=== PATIENT | female | born 1945 | race Caucasian/White ===

== ENCOUNTER 2018-05-25 10:29 | Emergency (ER) | payer OTHER ==
[~2018-05-25] VITALS: Ht 157.5 cm; Wt 77.3 kg
[~2018-05-25 10:29] MED LIST: ASPI81TA42 PO; HYDR25TA PO; LOSA25TA16 PO
[2018-05-25 12:20] VITALS: BP 141/87
[2018-05-25] MEDS ORDERED: KETOROLAC TROMETHAMINE 30 MG/ML VIAL IM ONE (12:45)
== END 2018-05-25 13:11 | disposition home or self-care (01) ==
LOC: EMS 10:31
DX: M54.9 Dorsalgia, unspecified (principal); I10 Essential (primary) hypertension; Z98.890 Other specified postprocedural states; Z88.0 Allergy status to penicillin; Z79.82 Long term (current) use of aspirin; Z79.899 Other long term (current) drug therapy
CPT/HCPCS: 96372; 99283; J1885

== ENCOUNTER 2019-10-09 11:53 | Emergency (ER) | payer OTHER ==
[~2019-10-09] VITALS: Ht 167.6 cm; Wt 83.8 kg
[~2019-10-09 11:53] MED LIST changes: +ASPI81TA40 PO; -ASPI81TA42 PO; +HYDR-1475 PO; -HYDR25TA PO; -LOSA25TA16 PO; +LOSA25TA71 PO
[2019-10-09] MEDS ORDERED: OXYMETAZOLINE HCL 0.05% 15 ML NASAL SPRAY NASAL ONE (12:45)
[2019-10-09 13:01] LABS: BASOPHILS % (AUTO) 0.4 % (0.0-2.0); EOSINOPHILS % (AUTO) 2.5 % (1.0-6.0); HEMATOCRIT 43.3 % (36-46); HEMOGLOBIN 13.8 g/dL (12.0-16.0); LYMPHOCYTES # (AUTO) 1.5 K/uL (1.0-4.8); MEAN CORPUSCULAR HEMOGLOBIN 24.9 pg (26.0-34.0); MEAN CORPUSCULAR HGB CONC 31.9 G/dL (31.0-37.0); MEAN CORPUSCULAR VOLUME 78 fL (80-100); MONOCYTES # (AUTO) 1.1 K/uL (0.1-1.0); MONOCYTES % (AUTO) 10.1 % (2.0-9.0); NEUTROPHILS # (AUTO) 7.6 K/uL (1.8-7.7); PLATELET COUNT (AUTO) 335 K/uL (150-450); RED BLOOD CELL COUNT(AUTO) 5.55 MIL/uL (4.00-5.20); RED CELL DISTRIBUTION WIDTH 14.9 % (11.5-14.5)
[2019-10-09 13:10] LABS: CALCIUM, TOTAL 9.6 mg/dL (8.8-10.5); CREATININE 0.95 mg/dL (0.60-1.30); POTASSIUM 3.9 mmol/L (3.5-5.1)
[2019-10-09 13:24] LABS: ALBUMIN 3.4 g/dL (3.4-5.0); BILIRUBIN,TOTAL 0.3 mg/dL (0.1-1.0); TOTAL PROTEIN, SERUM 8.1 g/dL (6.4-8.2)
[2019-10-09 13:40] VITALS: BP 120/77
== END 2019-10-09 14:11 | disposition home or self-care (01) ==
LOC: EMS 11:57
DX: R04.0 Epistaxis (principal); I10 Essential (primary) hypertension; Z98.890 Other specified postprocedural states; Z79.899 Other long term (current) drug therapy; Z79.82 Long term (current) use of aspirin; Z88.0 Allergy status to penicillin

== ENCOUNTER 2023-06-05 18:04 | Inpatient (IN) | payer OTHER ==
[~2023-06-05] VITALS: Ht 157.5 cm; Wt 81.1 kg
[~2023-06-05 18:04] MED LIST changes: +ASPI-1444 PO; -ASPI81TA40 PO; +ATOR20TA65 PO; +BACL10TA PO; +DAPA10TA PO; +FURO20TA4 PO; -HYDR-1475 PO; +ICOS1CAP PO; +LEVO750T68 PO; +LOSA-381 PO; -LOSA25TA71 PO; +METO50 PO; +PANT40TA54 PO; +POTA-203 PO
[2023-06-05] MEDS ORDERED: FUROSEMIDE 40 MG/4 ML VIAL IVP ONE (18:15)
[2023-06-05] MEDS ORDERED: ASPIRIN 325 MG TABLET PO ONE (18:15)
[2023-06-05 19:05] LABS: BASOPHILS % (AUTO) 0.3 % (0.0-2.0); EOSINOPHILS % (AUTO) 3.7 % (1.0-6.0); HEMATOCRIT 40.2 % (36-46); HEMOGLOBIN 12.4 g/dL (12.0-16.0); LYMPHOCYTES # (AUTO) 2.3 K/uL (1.0-4.8); LYMPHOCYTES % (AUTO) 24.7 % (22.0-44.0); MEAN CORPUSCULAR HEMOGLOBIN 23.6 pg (26.0-34.0); MEAN CORPUSCULAR HGB CONC 30.8 G/dL (31.0-37.0); MEAN CORPUSCULAR VOLUME 77 fL (80-100); MONOCYTES # (AUTO) 1.4 K/uL (0.1-1.0); MONOCYTES % (AUTO) 14.7 % (2.0-9.0); NEUTROPHILS # (AUTO) 5.2 K/uL (1.8-7.7); NEUTROPHILS % (AUTO) 56.6 % (40.0-70.0); PLATELET COUNT (AUTO) 284 K/uL (150-450); RED BLOOD CELL COUNT(AUTO) 5.24 MIL/uL (4.00-5.20); RED CELL DISTRIBUTION WIDTH 18.4 % (11.5-14.5); WHITE BLOOD COUNT (AUTO) 9.2 K/uL (4.5-11.0)
[2023-06-05 19:09] LABS: CREATININE 1.03 mg/dL (0.60-1.30)
[2023-06-05 19:10] LABS: CALCIUM, TOTAL 9.3 mg/dL (8.8-10.5)
[2023-06-05 19:15] LABS: BILIRUBIN,TOTAL 0.6 mg/dL (0.1-1.0); TOTAL PROTEIN, SERUM 7.1 g/dL (6.4-8.2)
[2023-06-05 19:17] LABS: TROPONIN I-HIGH SENSITIVITY 30 ng/L (<51)
[2023-06-05 19:19] LABS: PLATELET MORPHOLOGY COMMENT LARGE PLTS PRESENT; RBC MORPHOLOGY COMMENT ABNORMAL RBC MORPH
[2023-06-05 19:22] LABS: LACTIC ACID 1.6 mmol/L (0.4-2.0)
[2023-06-05 19:27] LABS: COVID AG,FIA SOURCE NASAL SWAB
[2023-06-05 19:29] LABS: APPEARANCE,URINE CLEAR (CLEAR); BILIRUBIN,URINE NEGATIVE (NEGATIVE); COLOR,URINE COLORLESS (YELLOW); GLUCOSE, URINE (UA) 300-500 mg/dL (NEGATIVE); KETONES,URINE NEGATIVE (NEGATIVE); LEUKOCYTE ESTERASE ,URINE NEGATIVE (NEGATIVE); NITRATE,URINE NEGATIVE (NEGATIVE); OCCULT BLOOD,URINE NEGATIVE (NEGATIVE); PROTEIN,URINE NEGATIVE (NEGATIVE); SPECIFIC GRAVITIY, URINE 1.005 (1.003-1.030); UROBILINOGEN,URINE <=1.0 mg/dL (<=1.0)
[2023-06-05 19:33] LABS: BACTERIA,URINE None Seen /HPF (None Seen); RBC,URINE 0-2 /HPF (0-2); SQUAMOUS EPITHELIAL CELL,UR Few /LPF (None Seen); WBC,URINE 0-2 /HPF (0-5)
[2023-06-05 19:45] LABS: SARS-COV2 (COVID) ANTIGEN,FIA Negative (Negative)
[2023-06-05] MEDS ORDERED: OXYGEN THERAPY IH SCH (20:00)
[2023-06-05] MEDS ORDERED: ALBUTEROL SULFATE 2.5 MG/0.5 ML NEB SOLUTION NEB PRN (21:00)
[2023-06-05] MEDS ORDERED: [UNRECOGNIZED DRUG - OTHER] PO SCH (21:00)
[2023-06-05] MEDS ORDERED: IPRATROPIUM BROMIDE 0.5 MG/2.5 ML NEB SOLUTION NEB PRN (21:00)
[2023-06-05] MEDS ORDERED: ONDANSETRON HCL 4 MG/2 ML VIAL IVP PRN (21:00)
[2023-06-05] MEDS ORDERED: ACETAMINOPHEN 325 MG TABLET PO PRN (21:00)
[2023-06-05] MEDS: METOPROLOL TARTRATE 50 MG TABLET PO SCH (21:39)
[2023-06-05] MEDS: ATORVASTATIN CALCIUM 20 MG TABLET PO SCH (21:39)
[2023-06-05] MEDS: DOCUSATE SODIUM 100 MG CAPSULE PO SCH (21:39)
[2023-06-05] MEDS ORDERED: IOHEXOL 350 MG/ML 100 ML VIAL ONE (21:55)
[2023-06-05] MEDS ORDERED: SODIUM CHLORIDE 0.9% 100 ML ONE (21:55)
[2023-06-05] MEDS ORDERED: VANCOMYCIN HCL 1.25 GM in DEXTROSE 5%-WATER 250 ML IV ONE (22:30)
[2023-06-05 22:54] VITALS: BP 142/89; PULSE 84; RESP 18; TEMP 97.9
[2023-06-05 23:51] LABS: TROPONIN I-HIGH SENSITIVITY 27 ng/L (<51)
[2023-06-06 00:51] VITALS: BP 137/85; PULSE 70; RESP 18; TEMP 97.6
[2023-06-06] MEDS: HEPARIN SODIUM,PORCINE 5,000 UNITS/ML VIAL SQ SCH ×3 (00:52→16:57)
[2023-06-06 05:43] VITALS: BP 138/88; PULSE 73; RESP 18; TEMP 98
[2023-06-06 07:04] LABS: ANION GAP 8 mmol/L (8-16); CALCIUM, TOTAL 9.2 mg/dL (8.8-10.5); CARBON DIOXIDE 29 mmol/L (22-29); CHLORIDE 103 mmol/L (98-107); CREATININE 0.88 mg/dL (0.60-1.30); GLOMERULAR FILTR. RATE CALC > 60 mL/min (>60); GLUCOSE,RANDOM 84 mg/dL (70-110); POTASSIUM 3.5 mmol/L (3.5-5.1); SODIUM SERUM 140 mmol/L (136-145); UREA NITROGEN, BLOOD 18 mg/dL (7-18)
[2023-06-06 07:06] LABS: BASOPHILS % (AUTO) 0.3 % (0.0-2.0); EOSINOPHILS % (AUTO) 3.9 % (1.0-6.0); HEMATOCRIT 40.8 % (36-46); HEMOGLOBIN 12.6 g/dL (12.0-16.0); LYMPHOCYTES # (AUTO) 1.9 K/uL (1.0-4.8); MEAN CORPUSCULAR HEMOGLOBIN 23.5 pg (26.0-34.0); MEAN CORPUSCULAR HGB CONC 30.9 G/dL (31.0-37.0); MEAN CORPUSCULAR VOLUME 76 fL (80-100); MONOCYTES # (AUTO) 1.1 K/uL (0.1-1.0); MONOCYTES % (AUTO) 13.5 % (2.0-9.0); NEUTROPHILS # (AUTO) 5.1 K/uL (1.8-7.7); NEUTROPHILS % (AUTO) 60.3 % (40.0-70.0); PLATELET COUNT (AUTO) 259 K/uL (150-450); RED BLOOD CELL COUNT(AUTO) 5.36 MIL/uL (4.00-5.20); RED CELL DISTRIBUTION WIDTH 17.9 % (11.5-14.5); WHITE BLOOD COUNT (AUTO) 8.4 K/uL (4.5-11.0)
[2023-06-06 07:19] LABS: TROPONIN I-HIGH SENSITIVITY 36 ng/L (<51)
[2023-06-06 07:35] VITALS: BP 134/86; PULSE 76; RESP 20; TEMP 97.8
[2023-06-06] MEDS ORDERED: VANCOMYCIN HCL 500 MG in DEXTROSE 5%-WATER 100 ML IV SCH (08:00)
[2023-06-06] MEDS ORDERED: DEXTROSE 50%-WATER 25 GM/50 ML SYRINGE IVP PRN (08:30)
[2023-06-06] MEDS ORDERED: INSULIN LISPRO 100 UNITS/ML SQ PRN (08:30)
[2023-06-06 08:50] LABS: RBC MORPHOLOGY COMMENT ABNORMAL RBC MORPH
[2023-06-06] MEDS: DOCUSATE SODIUM 100 MG CAPSULE PO SCH ×3 (09:30→20:56)
[2023-06-06] MEDS: BACLOFEN 10 MG TABLET PO SCH (10:00)
[2023-06-06] MEDS: ASPIRIN 81 MG DR TABLET PO SCH (10:28)
[2023-06-06] MEDS: PANTOPRAZOLE SODIUM 40 MG DR TABLET PO SCH (10:28)
[2023-06-06] MEDS: LOSARTAN POTASSIUM 25 MG TABLET PO SCH (10:28)
[2023-06-06] MEDS: METOPROLOL TARTRATE 50 MG TABLET PO SCH ×2 (10:28→20:55)
[2023-06-06] MEDS: FUROSEMIDE 20 MG/2 ML VIAL IVP SCH ×2 (10:29→20:56)
[2023-06-06] MEDS: VANCOMYCIN HCL 750 MG in DEXTROSE 5%-WATER 250 ML IV SCH ×2 (10:30→20:56)
[2023-06-06 11:36] VITALS: BP 137/87; PULSE 81; RESP 22; TEMP 96.4
[2023-06-06 15:06] VITALS: BP 132/82; PULSE 76; RESP 19; TEMP 97.8
[2023-06-06 19:19] VITALS: BP 119/60; PULSE 86; RESP 18; TEMP 98
[2023-06-06] MEDS: APIXABAN 5 MG TABLET PO SCH (20:55)
[2023-06-06] MEDS: ATORVASTATIN CALCIUM 20 MG TABLET PO SCH (20:55)
[2023-06-06] MEDS ORDERED: INSULIN GLARGINE,HUM.REC.ANLOG 100 UNITS/ML SQ SCH (21:00)
[2023-06-06 22:01] LABS: GLUCOMETER DEV NAME(LOC) 5N.1C; GLUCOSE,POINT OF CARE 91 MG/DL (70-110)
[2023-06-06 22:06] LABS: GLUCOMETER DEV NAME(LOC) 5S.1B; GLUCOSE,POINT OF CARE 114 MG/DL (70-110)
[2023-06-07 00:09] VITALS: BP 135/79; PULSE 83; RESP 19; TEMP 98.6
[2023-06-07 03:15] VITALS: BP 126/78; PULSE 77; RESP 18; TEMP 98.4
[2023-06-07 06:32] LABS: ANION GAP 3 mmol/L (8-16); CALCIUM, TOTAL 8.9 mg/dL (8.8-10.5); CARBON DIOXIDE 31 mmol/L (22-29); CHLORIDE 103 mmol/L (98-107); GLOMERULAR FILTR. RATE CALC > 60 mL/min (>60); GLUCOSE,RANDOM 90 mg/dL (70-110); POTASSIUM 3.5 mmol/L (3.5-5.1); SODIUM SERUM 137 mmol/L (136-145); UREA NITROGEN, BLOOD 19 mg/dL (7-18)
[2023-06-07 07:29] VITALS: BP 115/71; PULSE 78; RESP 18; TEMP 98
[2023-06-07] MEDS: DOCUSATE SODIUM 100 MG CAPSULE PO SCH (09:00)
[2023-06-07] MEDS: VANCOMYCIN HCL 750 MG in DEXTROSE 5%-WATER 250 ML IV SCH (09:18)
[2023-06-07] MEDS: LOSARTAN POTASSIUM 25 MG TABLET PO SCH (09:19)
[2023-06-07] MEDS: FUROSEMIDE 20 MG/2 ML VIAL IVP SCH (09:19)
[2023-06-07] MEDS: BACLOFEN 10 MG TABLET PO SCH (09:20)
[2023-06-07] MEDS: APIXABAN 5 MG TABLET PO SCH (09:20)
[2023-06-07] MEDS: METOPROLOL TARTRATE 50 MG TABLET PO SCH (09:20)
[2023-06-07] MEDS: PANTOPRAZOLE SODIUM 40 MG DR TABLET PO SCH (09:20)
[2023-06-07] MEDS: ASPIRIN 81 MG DR TABLET PO SCH (09:24)
[2023-06-07] MEDS ORDERED: MIRT-92 PO (11:11)
[2023-06-07] MEDS ORDERED: ESCI20TA37 PO (11:11)
[2023-06-07] MEDS ORDERED: BUSP10TA3 PO (11:11)
[2023-06-07 11:20] VITALS: BP 115/69; PULSE 78; RESP 18; TEMP 97.9
[2023-06-07 11:56] LABS: GLUCOMETER DEV NAME(LOC) 5S.1B; GLUCOSE,POINT OF CARE 100 MG/DL (70-110)
[2023-06-07] MEDS ORDERED: DOXY-354 PO (17:03)
[2023-06-07] MEDS ORDERED: APIX5TAB PO (17:03)
[2023-06-07] MEDS ORDERED: DOXYCYCLINE HYCLATE 100 MG TABLET PO ONE (17:15)
== END 2023-06-07 19:40 | disposition home or self-care (01) | DRG 602 ==
LOC: EDUNIT# 18:04 → EMS 18:12 → 5S 21:40
PROVIDERS: ADMIT Internal Medicine; ATTEND Internal Medicine
DX: L03.116 Cellulitis of left lower limb (principal); I50.43 Acute on chronic combined systolic (congestive) and diastolic (congestive) heart failure; J18.9 Pneumonia, unspecified organism; J96.01 Acute respiratory failure with hypoxia; I11.0 Hypertensive heart disease with heart failure; Z20.822 Contact with and (suspected) exposure to COVID-19; R91.8 Other nonspecific abnormal finding of lung field; E66.01 Morbid (severe) obesity due to excess calories; E11.9 Type 2 diabetes mellitus without complications; Z68.32 Body mass index [BMI] 32.0-32.9, adult; Z88.0 Allergy status to penicillin; Z88.1 Allergy status to other antibiotic agents; Z79.899 Other long term (current) drug therapy; Z79.82 Long term (current) use of aspirin
CPT/HCPCS: 51702; 71045; 71275; 73503; 80048; 80053; 81001; 82962; 83605; 83690; 83735; 83880; 84484; 85025; 85379; 87040; 93005; 93971; 99291; G0378; J1644; J1815; J1940; J3370; J7050; J7060; Q9967; 36415-L1; 36415-TC

== ENCOUNTER 2023-12-30 09:07 | Inpatient (IN) | payer OTHER ==
[~2023-12-30] VITALS: Ht 160 cm; Wt 86.4 kg
[~2023-12-30 09:07] MED LIST changes: +APIX5TAB PO; +BUSP10TA3 PO; +DOXY-354 PO; +ESCI20TA37 PO; +MIRT-92 PO
[2023-12-30 09:15] VITALS: PULSE 74; RESP 16; RESP 20; O2SAT 93
[2023-12-30] MEDS ORDERED: POTA10CA95 PO (09:24)
[2023-12-30] MEDS ORDERED: LOSA-382 PO (09:24)
[2023-12-30] MEDS ORDERED: BUME1TAB34 PO (09:24)
[2023-12-30] MEDS ORDERED: KETO15CR2 TP (09:24)
[2023-12-30] MEDS: NITROGLYCERIN 2% (1 GM=INCH) OINTMENT PACKET TP ONE (09:27)
[2023-12-30 09:41] LABS: BASOPHILS % (AUTO) 0.2 % (0.0-2.0); EOSINOPHILS % (AUTO) 3.3 % (1.0-6.0); HEMATOCRIT 42.8 % (36-46); HEMOGLOBIN 13.7 g/dL (12.0-16.0); LYMPHOCYTES # (AUTO) 1.8 K/uL (1.0-4.8); LYMPHOCYTES % (AUTO) 21.1 % (22.0-44.0); MEAN CORPUSCULAR HEMOGLOBIN 28.2 pg (26.0-34.0); MEAN CORPUSCULAR VOLUME 88 fL (80-100); MONOCYTES # (AUTO) 0.5 K/uL (0.1-1.0); MONOCYTES % (AUTO) 6.4 % (2.0-9.0); NEUTROPHILS # (AUTO) 5.9 K/uL (1.8-7.7); PLATELET COUNT (AUTO) 205 K/uL (150-450); RED BLOOD CELL COUNT(AUTO) 4.86 MIL/uL (4.00-5.20); RED CELL DISTRIBUTION WIDTH 14.9 % (11.5-14.5); WHITE BLOOD COUNT (AUTO) 8.6 K/uL (4.5-11.0)
[2023-12-30 09:51] LABS: CALCIUM, TOTAL 9.2 mg/dL (8.8-10.5); CREATININE 1.13 mg/dL (0.60-1.30); POTASSIUM 4.2 mmol/L (3.5-5.1)
[2023-12-30 09:57] LABS: BILIRUBIN,TOTAL 0.3 mg/dL (0.1-1.0); PROTHROMBIN TIME 10.8 SEC (9.4-11.6); TOTAL PROTEIN, SERUM 7.5 g/dL (6.4-8.2)
[2023-12-30 10:01] LABS: TROPONIN I-HIGH SENSITIVITY 16 ng/L (<51)
[2023-12-30] MEDS: BUMETANIDE 0.25 MG/ML 4 ML VIAL IVP ONE (10:20)
[2023-12-30 11:43] LABS: APPEARANCE,URINE CLEAR (CLEAR); BILIRUBIN,URINE NEGATIVE (NEGATIVE); COLOR,URINE COLORLESS (YELLOW); GLUCOSE, URINE (UA) >=1000 mg/dL (NEGATIVE); KETONES,URINE NEGATIVE (NEGATIVE); LEUKOCYTE ESTERASE ,URINE SMALL (NEGATIVE); NITRATE,URINE NEGATIVE (NEGATIVE); OCCULT BLOOD,URINE NEGATIVE (NEGATIVE); PH,URINE 5.5 (5.0-8.0); PROTEIN,URINE NEGATIVE (NEGATIVE); SPECIFIC GRAVITIY, URINE 1.006 (1.003-1.030); UROBILINOGEN,URINE <=1.0 mg/dL (<=1.0)
[2023-12-30 12:30] LABS: COVID AG,FIA SOURCE NASAL SWAB
[2023-12-30 12:54] LABS: SARS-COV2 (COVID) ANTIGEN,FIA Negative (Negative)
[2023-12-30 13:39] LABS: RBC,URINE None Seen /HPF (0-2)
[2023-12-30 13:40] LABS: BACTERIA,URINE Few /HPF (None Seen)
[2023-12-30 16:00] VITALS: BP 130/78; PULSE 63; RESP 14; TEMP 98.1
[2023-12-30] MEDS ORDERED: ONDANSETRON HCL 4 MG/2 ML VIAL IVP PRN (18:15)
[2023-12-30] MEDS ORDERED: ZOLPIDEM TARTRATE 5 MG TABLET PO PRN (18:15)
[2023-12-30] MEDS ORDERED: BISACODYL 10 MG RECTAL RECTAL SUPPOSITORY PR PRN (18:15)
[2023-12-30] MEDS ORDERED: ACETAMINOPHEN 325 MG TABLET PO PRN (18:15)
[2023-12-30] MEDS ORDERED: MORPHINE SULFATE 2 MG/ML SYRINGE IVP PRN (18:15)
[2023-12-30] MEDS ORDERED: IPRATROPIUM BROMIDE 0.5 MG/2.5 ML NEB SOLUTION NEB PRN (18:15)
[2023-12-30] MEDS ORDERED: ALBUTEROL SULFATE 2.5 MG/0.5 ML NEB SOLUTION NEB PRN (18:15)
[2023-12-30] MEDS ORDERED: HYDROCODONE/ACETAMINOPHEN 5-325 MG TABLET PO PRN (18:15)
[2023-12-30] MEDS ORDERED: MAGNESIUM HYDROXIDE SUSPENSION 30 ML UDCUP PO PRN (18:15)
[2023-12-30 20:00] VITALS: BP 111/71; PULSE 69; RESP 17; TEMP 98
[2023-12-30] MEDS: APIXABAN 5 MG TABLET PO SCH (20:49)
[2023-12-30] MEDS: ESCITALOPRAM OXALATE 20 MG TABLET PO SCH (20:49)
[2023-12-30] MEDS: ATORVASTATIN CALCIUM 20 MG TABLET PO SCH (20:49)
[2023-12-30] MEDS: MIRTAZAPINE 15 MG TABLET PO SCH (20:49)
[2023-12-30] MEDS: POTASSIUM CHLORIDE 10 MEQ ER TABLET PO SCH (20:49)
[2023-12-30] MEDS: METOPROLOL TARTRATE 50 MG TABLET PO SCH (20:49)
[2023-12-30] MEDS ORDERED: [UNRECOGNIZED DRUG - OTHER] PO SCH (21:00)
[2023-12-31] VITALS (7 sets, daily range): BP systolic 106–129; BP diastolic 57–78; PULSE 53–98; RESP 15–20; TEMP 97.8–98.1; O2SAT 95
[2023-12-31 05:55] LABS: BASOPHILS % (AUTO) 0.2 % (0.0-2.0); HEMATOCRIT 42.6 % (36-46); HEMOGLOBIN 13.8 g/dL (12.0-16.0); LYMPHOCYTES # (AUTO) 2.4 K/uL (1.0-4.8); LYMPHOCYTES % (AUTO) 25.5 % (22.0-44.0); MEAN CORPUSCULAR HEMOGLOBIN 28.1 pg (26.0-34.0); MEAN CORPUSCULAR HGB CONC 32.5 G/dL (31.0-37.0); MEAN CORPUSCULAR VOLUME 87 fL (80-100); MONOCYTES # (AUTO) 1.1 K/uL (0.1-1.0); NEUTROPHILS # (AUTO) 5.5 K/uL (1.8-7.7); NEUTROPHILS % (AUTO) 58.3 % (40.0-70.0); PLATELET COUNT (AUTO) 209 K/uL (150-450); RED BLOOD CELL COUNT(AUTO) 4.92 MIL/uL (4.00-5.20); RED CELL DISTRIBUTION WIDTH 15.1 % (11.5-14.5); WHITE BLOOD COUNT (AUTO) 9.4 K/uL (4.5-11.0)
[2023-12-31 06:05] LABS: ALBUMIN 2.9 g/dL (3.4-5.0); BILIRUBIN,TOTAL 0.3 mg/dL (0.1-1.0); CALCIUM, TOTAL 9.3 mg/dL (8.8-10.5); CREATININE 0.91 mg/dL (0.60-1.30); POTASSIUM 4.3 mmol/L (3.5-5.1); TOTAL PROTEIN, SERUM 7.2 g/dL (6.4-8.2)
[2023-12-31] MEDS: PANTOPRAZOLE SODIUM 40 MG DR TABLET PO SCH (08:45)
[2023-12-31] MEDS: LOSARTAN POTASSIUM 50 MG TABLET PO SCH (08:45)
[2023-12-31] MEDS: DAPAGLIFLOZIN PROPANEDIOL 5 MG TABLET PO SCH (08:46)
[2023-12-31] MEDS ORDERED: PANTOPRAZOLE SODIUM 40 MG DR TABLET PO SCH (09:00)
[2023-12-31] MEDS ORDERED: BUME1TAB34 PO (13:33)
[2023-12-31] MEDS ORDERED: FURO40TA5 PO (17:03)
[2024-01-01] MEDS ORDERED: BUMETANIDE 0.25 MG/ML 4 ML VIAL IVP SCH (09:00)
== END 2023-12-31 16:00 | disposition home health service (06) | DRG 291 ==
LOC: EMS 09:07 → ICU 14:33 → 5S 12-31 05:40
PROVIDERS: ADMIT Hospitalist; ATTEND Hospitalist
PROC: 5A09357 Assistance with Respiratory Ventilation, Less than 24 Consecutive Hours, Continuous Positive Airway Pressure (ICD-10-PCS; principal; 2023-12-30)
DX: I11.0 Hypertensive heart disease with heart failure (principal); I50.23 Acute on chronic systolic (congestive) heart failure; J96.90 Respiratory failure, unspecified, unspecified whether with hypoxia or hypercapnia; Z20.822 Contact with and (suspected) exposure to COVID-19; Z88.0 Allergy status to penicillin; Z88.8 Allergy status to other drugs, medicaments and biological substances
CPT/HCPCS: 71045; 80053; 81001; 83880; 84484; 85025; 85610; 85730; 87081; 93005; 94660; 97116; 97163; 97165; 97535; 99285; J3490; Q9967; 36415-L1; 36415-TC

== ENCOUNTER 2024-06-14 04:07 | Inpatient (IN) | payer MEDICARE, OTHER ==
[~2024-06-14] VITALS: Ht 162.6 cm; Wt 98.2 kg
[2024-06-14] VITALS (9 sets, daily range): BP systolic 91–112; BP diastolic 64–82; PULSE 93–118; RESP 18–36; TEMP 97.4–98.4; O2SAT 96–100
[~2024-06-14 04:07] MED LIST changes: -ASPI-1444 PO; -BACL10TA PO; +BUME1TAB50 PO; -BUSP10TA3 PO; -DOXY-354 PO; -FURO20TA4 PO; +FURO40TA5 PO; +KETO15CR2 TP; -LEVO750T68 PO; -LOSA-381 PO; +LOSA-382 PO; -POTA-203 PO; +POTA10CA95 PO
[2024-06-14 04:24] LABS: ABG BASE EXCESS -3.3 mmol/L (-2.0-3.0); ABG CARBOXYHEMOGLOBIN 0.4 % (0.5-1.5); ABG HCO3 20.9 mmol/L (21.0-28.0); ABG METHEMOGLOBIN 0.8 % (0.0-1.5); ABG OXYGEN SATURATION 99.8 % (94.0-98.0); ABG OXYHEMOGLOBIN 98.6 % (94.0-98.0); ABG TOTAL HEMOGLOBIN 14.7 G/dL (12.0-16.0); PO2, ARTERIAL BG 267.4 mmHg (83.0-108.0); SOURCE, BLOOD GAS ARTERIAL; TEMPERATURE, FAHRENHEIT, BG 98.6 FAHREN (96.0-98.6)
[2024-06-14 04:25] LABS: ABG PCO2 62 mmHg (32.0-45.0); ABG PH 7.214 (7.350-7.450); SITE, BLOOD GAS RT RADIAL
[2024-06-14] MEDS: FUROSEMIDE 40 MG/4 ML VIAL IVP ONE (04:25)
[2024-06-14 04:26] LABS: ALLEN TEST, BLOOD GAS Positive; INSPIRATORY TIME, BG 0.9 SEC; O2 DEVICE,BLOOD GAS BIPAP (ROOM AIR); SPONTANEOUS VT, BG 447 ml
[2024-06-14 04:43] LABS: BASOPHILS % (AUTO) 0.2 % (0.0-2.0); EOSINOPHILS % (AUTO) 3.3 % (1.0-6.0); HEMATOCRIT 44.3 % (36-46); LYMPHOCYTES # (AUTO) 4.5 K/uL (1.0-4.8); MEAN CORPUSCULAR HEMOGLOBIN 28.1 pg (26.0-34.0); MEAN CORPUSCULAR HGB CONC 31.5 G/dL (31.0-37.0); MEAN CORPUSCULAR VOLUME 89 fL (80-100); MONOCYTES % (AUTO) 7.9 % (2.0-9.0); NEUTROPHILS # (AUTO) 7.2 K/uL (1.8-7.7); NEUTROPHILS % (AUTO) 54.6 % (40.0-70.0); PLATELET COUNT (AUTO) 267 K/uL (150-450); RED BLOOD CELL COUNT(AUTO) 4.96 MIL/uL (4.00-5.20); RED CELL DISTRIBUTION WIDTH 15.2 % (11.5-14.5); WHITE BLOOD COUNT (AUTO) 13.2 K/uL (4.5-11.0)
[2024-06-14 04:47] LABS: APPEARANCE,URINE CLEAR (CLEAR); BILIRUBIN,URINE NEGATIVE (NEGATIVE); COLOR,URINE LIGHT YELLOW (YELLOW); GLUCOSE, URINE (UA) >=1000 mg/dL (NEGATIVE); KETONES,URINE NEGATIVE (NEGATIVE); LEUKOCYTE ESTERASE ,URINE NEGATIVE (NEGATIVE); NITRATE,URINE NEGATIVE (NEGATIVE); OCCULT BLOOD,URINE NEGATIVE (NEGATIVE); PH,URINE 5.5 (5.0-8.0); PROTEIN,URINE 30-70 mg/dL (NEGATIVE); SPECIFIC GRAVITIY, URINE 1.014 (1.003-1.030); UROBILINOGEN,URINE <=1.0 mg/dL (<=1.0)
[2024-06-14 04:48] LABS: CALCIUM, TOTAL 8.8 mg/dL (8.8-10.5); CREATININE 1.24 mg/dL (0.60-1.30); POTASSIUM 3.6 mmol/L (3.5-5.1)
[2024-06-14 04:51] LABS: PROTHROMBIN TIME 11.1 SEC (9.4-11.6)
[2024-06-14 04:54] LABS: TROPONIN I-HIGH SENSITIVITY 26 ng/L (<51)
[2024-06-14 04:55] LABS: BACTERIA,URINE None Seen /HPF (None Seen); RBC,URINE None Seen /HPF (0-2); SQUAMOUS EPITHELIAL CELL,UR Few /LPF (None Seen); WBC,URINE None Seen /HPF (0-5)
[2024-06-14 04:57] LABS: COVID AG,FIA SOURCE NASAL SWAB
[2024-06-14 05:01] LABS: INFLUENZA TYPE A NEGATIVE FOR TYPE A (NEGATIVE); INFLUENZA TYPE B NEGATIVE FOR TYPE B (NEGATIVE); SARS-COV2 (COVID) ANTIGEN,FIA Negative (Negative)
[2024-06-14 05:11] LABS: ALBUMIN 3.2 g/dL (3.4-5.0); BILIRUBIN,TOTAL 0.3 mg/dL (0.1-1.0); TOTAL PROTEIN, SERUM 7.6 g/dL (6.4-8.2)
[2024-06-14] MEDS: LEVOFLOXACIN 500 MG/D5% WATER 100 ML IV ONE (05:11)
[2024-06-14] MEDS ORDERED: ACETAMINOPHEN 325 MG TABLET PO PRN (06:15)
[2024-06-14] MEDS ORDERED: ONDANSETRON HCL 4 MG/2 ML VIAL IVP PRN (06:15)
[2024-06-14] MEDS ORDERED: ALBUTEROL SULFATE 2.5 MG/0.5 ML NEB SOLUTION NEB PRN ×2 (06:15→09:45)
[2024-06-14] MEDS: ACETAMINOPHEN 650 MG/ISO-OSM 65 ML IV ONE (06:22)
[2024-06-14] MEDS: FAMOTIDINE 20 MG TABLET PO SCH (08:28)
[2024-06-14] MEDS: HEPARIN SODIUM,PORCINE 5,000 UNITS/ML VIAL SQ SCH (08:28)
[2024-06-14] MEDS: DOCUSATE SODIUM 100 MG CAPSULE PO SCH (08:28)
[2024-06-14] MEDS: *CLINICAL-LEVOFLOXACIN IVPB DOSING CLINICAL ONE (09:30)
[2024-06-14] MEDS: SODIUM CHLORIDE 0.9% 1,000 ML IV ONE (10:29)
[2024-06-14] MEDS: FUROSEMIDE 40 MG/4 ML VIAL IVP SCH (18:20)
[2024-06-14] MEDS ORDERED: SODIUM CHLORIDE 0.9% 100 ML ONE (22:36)
[2024-06-14] MEDS ORDERED: IOHEXOL 350 MG/ML 100 ML VIAL ONE (22:37)
[2024-06-15 03:40] VITALS: BP 127/84; PULSE 109; RESP 20; TEMP 97.3; O2SAT 96
[2024-06-15] MEDS ORDERED: SODIUM CHLORIDE 0.9% 500 ML IV ONE (05:02)
[2024-06-15] MEDS: LEVOFLOXACIN 750 MG/D5% WATER 150 ML IV SCH (05:16)
[2024-06-15 08:18] VITALS: BP 118/77; PULSE 112; RESP 18; TEMP 97.3; O2SAT 95
[2024-06-15 11:29] VITALS: BP 122/77; PULSE 97; RESP 18; TEMP 98.3; O2SAT 96
[2024-06-15 11:52] LABS: BASOPHILS % (AUTO) 0.3 % (0.0-2.0); EOSINOPHILS % (AUTO) 3.3 % (1.0-6.0); HEMATOCRIT 40.3 % (36-46); HEMOGLOBIN 13.1 g/dL (12.0-16.0); LYMPHOCYTES # (AUTO) 1.6 K/uL (1.0-4.8); LYMPHOCYTES % (AUTO) 20.4 % (22.0-44.0); MEAN CORPUSCULAR HEMOGLOBIN 28.2 pg (26.0-34.0); MEAN CORPUSCULAR HGB CONC 32.5 G/dL (31.0-37.0); MEAN CORPUSCULAR VOLUME 87 fL (80-100); MONOCYTES # (AUTO) 0.8 K/uL (0.1-1.0); MONOCYTES % (AUTO) 10.4 % (2.0-9.0); NEUTROPHILS % (AUTO) 65.6 % (40.0-70.0); PLATELET COUNT (AUTO) 222 K/uL (150-450); RED BLOOD CELL COUNT(AUTO) 4.65 MIL/uL (4.00-5.20); RED CELL DISTRIBUTION WIDTH 14.4 % (11.5-14.5); WHITE BLOOD COUNT (AUTO) 7.6 K/uL (4.5-11.0)
[2024-06-15 12:01] LABS: CALCIUM, TOTAL 8.4 mg/dL (8.8-10.5); CREATININE 0.91 mg/dL (0.60-1.30); POTASSIUM 3.5 mmol/L (3.5-5.1)
[2024-06-15] MEDS: AMIODARONE HCL 150 MG in DEXTROSE 5%-WATER 97 ML IV ONE (14:44)
[2024-06-15] MEDS: AMIODARONE HCL 360 MG in DEXTROSE 5%-WATER 242.8 ML IV ONE (14:45)
[2024-06-15 15:40] VITALS: BP 134/80; PULSE 116; RESP 18; TEMP 98.3; O2SAT 97
[2024-06-15] MEDS: DIGOXIN 250 MCG/ML 2 ML AMP IVP SCH (16:51)
[2024-06-15] MEDS: AMIODARONE HCL 540 MG in DEXTROSE 5%-WATER 239.2 ML IV ONE (19:33)
[2024-06-15 20:02] VITALS: BP 118/73; PULSE 89; RESP 18; TEMP 97.5; O2SAT 95
[2024-06-15 21:21] LABS: GLUCOMETER DEV NAME(LOC) 5S.1C; GLUCOSE,POINT OF CARE 135 MG/DL (70-110)
[2024-06-15 23:59] VITALS: BP 125/75; PULSE 90; RESP 18; TEMP 97.7; O2SAT 96
[2024-06-16 05:11] VITALS: BP 129/91; PULSE 78; RESP 18; TEMP 97.7; O2SAT 98
[2024-06-16 06:30] LABS: BASOPHILS % (AUTO) 0.4 % (0.0-2.0); EOSINOPHILS % (AUTO) 5.2 % (1.0-6.0); HEMATOCRIT 39.5 % (36-46); LYMPHOCYTES # (AUTO) 1.8 K/uL (1.0-4.8); LYMPHOCYTES % (AUTO) 21.9 % (22.0-44.0); MEAN CORPUSCULAR HEMOGLOBIN 28.7 pg (26.0-34.0); MEAN CORPUSCULAR VOLUME 87 fL (80-100); MONOCYTES # (AUTO) 0.9 K/uL (0.1-1.0); MONOCYTES % (AUTO) 11.1 % (2.0-9.0); NEUTROPHILS % (AUTO) 61.4 % (40.0-70.0); PLATELET COUNT (AUTO) 195 K/uL (150-450); RED BLOOD CELL COUNT(AUTO) 4.54 MIL/uL (4.00-5.20); RED CELL DISTRIBUTION WIDTH 14.2 % (11.5-14.5); WHITE BLOOD COUNT (AUTO) 8.1 K/uL (4.5-11.0)
[2024-06-16 06:37] LABS: CALCIUM, TOTAL 8.7 mg/dL (8.8-10.5); CREATININE 1.2 mg/dL (0.60-1.30); POTASSIUM 3.7 mmol/L (3.5-5.1)
[2024-06-16 08:00] VITALS: BP 116/62; PULSE 86; RESP 18; TEMP 97.9; O2SAT 95
[2024-06-16 08:26] LABS: GLUCOMETER DEV NAME(LOC) 5S.1C; GLUCOSE,POINT OF CARE 121 MG/DL (70-110)
[2024-06-16] MEDS ORDERED: INSULIN LISPRO 100 UNITS/ML SQ PRN (11:15)
[2024-06-16] MEDS ORDERED: DEXTROSE 50%-WATER 25 GM/50 ML SYRINGE IVP PRN (11:15)
[2024-06-16 12:00] VITALS: BP 120/47; PULSE 104; RESP 18; TEMP 97.4; O2SAT 96
[2024-06-16 12:26] LABS: GLUCOMETER DEV NAME(LOC) 5N.2C; GLUCOSE,POINT OF CARE 119 MG/DL (70-110)
[2024-06-16] MEDS: AMIODARONE HCL 750 MG in DEXTROSE 5%-WATER 485 ML IV SCH (12:59)
[2024-06-16 16:00] VITALS: BP 144/89; PULSE 76; RESP 18; TEMP 97.9; O2SAT 94
[2024-06-16] MEDS: METOPROLOL SUCCINATE 50 MG ER TABLET PO SCH (16:37)
[2024-06-16 17:06] LABS: GLUCOMETER DEV NAME(LOC) 5S.2D; GLUCOSE,POINT OF CARE 99 MG/DL (70-110)
[2024-06-16 20:26] VITALS: BP 140/65; PULSE 66; RESP 18; TEMP 98.2; O2SAT 94
[2024-06-16 21:51] LABS: GLUCOMETER DEV NAME(LOC) 5N.1D; GLUCOSE,POINT OF CARE 106 MG/DL (70-110)
[2024-06-17] VITALS: BP 120/82; PULSE 67; RESP 18; TEMP 98.1; O2SAT 96
[2024-06-17 04:00] VITALS: BP 135/81; PULSE 75; RESP 18; TEMP 98.1; O2SAT 96
[2024-06-17] MEDS ORDERED: SODIUM CHLORIDE 0.9% 500 ML IV ONE ×2 (04:23→12:24)
[2024-06-17 07:01] LABS: GLUCOMETER DEV NAME(LOC) 5N.1D; GLUCOSE,POINT OF CARE 133 MG/DL (70-110)
[2024-06-17 12:00] VITALS: BP 145/74; PULSE 74; RESP 18; TEMP 98.4; O2SAT 97
[2024-06-17 12:36] LABS: GLUCOMETER DEV NAME(LOC) 5S.1C; GLUCOSE,POINT OF CARE 88 MG/DL (70-110)
[2024-06-17] MEDS: AMIODARONE HCL 200 MG TABLET PO ONE (13:08)
[2024-06-17] MEDS: APIXABAN 5 MG TABLET PO ONE (13:08)
[2024-06-17] MEDS ORDERED: SPIRONOLACTONE 25 MG TABLET PO SCH (14:00)
[2024-06-17 14:51] VITALS: BP 122/72; PULSE 89; RESP 18; TEMP 98; O2SAT 95
[2024-06-17] MEDS ORDERED: SPIR-37 PO (16:23)
[2024-06-17] MEDS ORDERED: AMIO200 PO (17:18)
[2024-06-17] MEDS ORDERED: AMIODARONE HCL 200 MG TABLET PO SCH (21:00)
[2024-06-17] MEDS ORDERED: APIXABAN 5 MG TABLET PO SCH (21:00)
== END 2024-06-17 18:00 | disposition home or self-care (01) | DRG 871 ==
LOC: EMS 04:07 → EDH 05:51 → 5S 06:51
PROVIDERS: ADMIT Internal Medicine; ATTEND Internal Medicine
PROC: 5A09357 Assistance with Respiratory Ventilation, Less than 24 Consecutive Hours, Continuous Positive Airway Pressure (ICD-10-PCS; principal; 2024-06-14)
DX: A41.9 Sepsis, unspecified organism (principal); I50.33 Acute on chronic diastolic (congestive) heart failure; J96.01 Acute respiratory failure with hypoxia; I48.91 Unspecified atrial fibrillation; I48.92 Unspecified atrial flutter; I11.0 Hypertensive heart disease with heart failure; I08.1 Rheumatic disorders of both mitral and tricuspid valves; Z68.37 Body mass index [BMI] 37.0-37.9, adult; E11.9 Type 2 diabetes mellitus without complications; E78.5 Hyperlipidemia, unspecified; K44.9 Diaphragmatic hernia without obstruction or gangrene; K76.0 Fatty (change of) liver, not elsewhere classified; E66.9 Obesity, unspecified; Z88.0 Allergy status to penicillin; Z79.01 Long term (current) use of anticoagulants; Z79.899 Other long term (current) drug therapy; Z88.1 Allergy status to other antibiotic agents; Z20.822 Contact with and (suspected) exposure to COVID-19
CPT/HCPCS: 36600; 71045; 71260; 80048; 80053; 81001; 82550; 82805; 82962; 83605; 83880; 84145; 84484; 85025; 85610; 85730; 87040; 87804; 93005; 93306; 94660; 99291; J0131; J0282; J1160; J1644; J1940; J1956; J7030; J7040; J7050; J7060; 36415-L1; 36415-TC